=== PATIENT | male | born 1980 | race Caucasian/White ===

== ENCOUNTER 2017-08-22 14:01 | Emergency (ER) | payer OTHER ==
[~2017-08-22] VITALS: Ht 188 cm; Wt 77.1 kg
[2017-08-22] MEDS ORDERED: KEFLEX500 M1 PO (14:21)
[2017-08-22] MEDS ORDERED: BACTRIM DS TAB1 EACH PO (14:21)
[2017-08-22 14:28] VITALS: BP 123/80
== END 2017-08-22 14:29 | disposition home or self-care (01) ==
LOC: M.ERS 14:01
DX: L03.116 Cellulitis of left lower limb (principal); L02.416 Cutaneous abscess of left lower limb; F32.9 Major depressive disorder, single episode, unspecified; F17.210 Nicotine dependence, cigarettes, uncomplicated